=== PATIENT | male | born 1965 | race Caucasian/White ===

== ENCOUNTER 2018-06-26 22:20 | Emergency (ER) | payer OTHER ==
--- NOTE | 2018-06-26 22:26 | PDOC ---
History of Present Illness - General Chief Complaint: Eye Problem Stated Complaint: EYE PROBLEM Time Seen by Provider: 06/26/18 22:25 History Source: Patient Exam Limitations: No Limitations - History of Present Illness Initial Comments: 06/26/18 22:47 53 year old male with PMH HTN, DM (Trulicity, Metformin), tinnitus (x1 year) presented to ED for right sided facial drooping x2 days. Pt admitted to dry right eye, blurry vision, numbness to right side of face. Pt denied fever, chills, nausea, vomiting, headache, weakness of extremities, changes to gait, dizziness. Past History - Past Medical History Home Medications: Ambulatory Orders Acyclovir [Zovirax -] 400 mg PO 5XD #50 tablet 06/26/18 Dextran 70/Hypromellose [Artificial Tears] 2 drop OP PRN #1 bottle 06/26/18 Review of Systems - Review of Systems Able to Perform ROS?: Yes Comments:: 06/26/18 22:48 General: denied fever, chills, night sweats, generalized weakness. Eye: admitted to dry eyes, blurry vision. HENT: admitted to tinnitus. denied sore throat, rhinorrhea, ear pain. Heart: denied chest pain, palpitations, syncope, lower extremity swelling, diaphoresis. Respiratory: denied shortness of breath, cough, sputum production, hemoptysis. Abdomen: denied abdominal pain, nausea, vomiting, diarrhea, constipation, blood in stool. : denied dysuria, increased urinary frequency, hematuria, urinary incontinence , flank pain. Back: denied back pain. Musculoskeletal: denied joint pain, muscle pain, joint swelling. Neurological: admitted to right sided facial drooping, numbness. denied headache , dizziness, weakness. Skin: denied rash, laceration, abrasion. *Physical Exam - Physical Exam Comments: 06/26/18 23:00 Constitutional: Well-nourished, Well-developed, appearing stated age. Eye: 20/20 vision bilaterally. HEENT: head is normocephalic, atraumatic. EOMI. PERRLA. no vesicles to bilateral TM, no erythema or bulging to bilateral TM. Neck: supple. Full ROM. Heart: regular rhythm. no murmurs, rubs or gallops. Lungs: clear to auscultation bilaterally. no crackles, rhonchi or wheezing. no stridor. Abdomen: soft, nontender. normal bowel sounds. no rebound, guarding, masses. Extremities: Peripheral pulses intact. No lower extremity edema. Neurological: Alert. Oriented x3. CN2-12 intact. Drooping of right nasolabial fold, decreased smile on right, decreased forehead wrinkling on right. 5/5 strength all extremities. Full and equal sensation all extremities and bilateral face. Finger to nose normal. Gait normal. Psych: awake, alert, oriented x3. Follows commands. Answers questions appropriately. ED Treatment Course - LABORATORY CBC & Chemistry Diagram: 06/26/18 22:45 06/26/18 22:45 Medical Decision Making - Medical Decision Making 06/26/18 23:02 53 year old male with above PMH presented to ED for right sided facial drooping , dry right eye x2 days. Symptoms consistent with bells palsy. Pt is neurologically intact. Initial Vital Signs Temp Pulse Resp BP Pulse Ox 98.5 F 68 17 158/95 100 06/26/18 22:23 06/26/18 22:23 06/26/18 22:23 06/26/18 22:23 06/26/18 22:23 Afebrile. No tachycardia. No tachypnea. Mild hypertension. No hypoxia on room air. Labs ordered: CBC, CMP, lyme. Medications ordered: none Imaging ordered: none I spoke with neurology poultry boner, Dr. Campbell, who advised discharge with follow up in his office with prescription for artifical tears and acyclovir. Pt's last hemoglobin A1C was 9. Steroids deferred at this time. CBC WBC 7.0 K/mm3 (4.0-10.0) 06/26/18 22:45 RBC 5.46 M/mm3 (4.00-5.60) 06/26/18 22:45 Hgb 17.1 GM/dL (11.7-16.9) H 06/26/18 22:45 Hct 48.8 % (35.4-49) 06/26/18 22:45 MCV 89.3 fl (80-96) 06/26/18 22:45 MCH 31.4 pg (25.7-33.7) 06/26/18 22:45 MCHC 35.1 g/dl (32.0-35.9) 06/26/18 22:45 RDW 12.9 % (11.9-15.9) 06/26/18 22:45 Plt Count 188 K/MM3 (134-434) 06/26/18 22:45 MPV 10.4 fl (7.5-11.1) 06/26/18 22:45 No leukocytosis. No anemia. 06/26/18 23:54 CMP Sodium 138 mmol/L (136-145) 06/26/18 22:45 Potassium 4.2 mmol/L (3.5-5.1) 06/26/18 22:45 Chloride 98 mmol/L (98-107) 06/26/18 22:45 Carbon Dioxide 32 mmol/L (21-32) 06/26/18 22:45 Anion Gap 8 MMOL/L (8-16) 06/26/18 22:45 BUN 19 mg/dL (7-18) H 06/26/18 22:45 Creatinine 1.2 mg/dL (0.55-1.3) 06/26/18 22:45 Creat Clearance w eGFR > 60 (>60) 06/26/18 22:45 Random Glucose 310 mg/dL (74-106) H* 06/26/18 22:45 Calcium 9.5 mg/dL (8.5-10.1) 06/26/18 22:45 Total Bilirubin 0.5 mg/dL (0.2-1) 06/26/18 22:45 AST 32 U/L (15-37) 06/26/18 22:45 ALT 53 U/L (13-61) 06/26/18 22:45 Alkaline Phosphatase 96 U/L (45-117) 06/26/18 22:45 Total Protein 8.0 g/dl (6.4-8.2) 06/26/18 22:45 Albumin 4.3 g/dl (3.4-5.0) 06/26/18 22:45 No electrolyte abnormalities. No XOCHITL. Cr 1.2, no prior to compare. Hyperglycemic. No transaminitis. Pt informed of hyperglycemia and need for follow up with PCP for better glycemic control. Pt informed of importance of quick neurology follow up. Pt given referrals. Pt given the option of Valcyclovir vs Acyclovir, stated he preferred the cheaper option. Pt's eye was covered with tape and gauze to keep right eye shut and prevent dryness. Pt agreed with the plan for care and was discharged with prescription for acyclovir and artifical tears. Steroids were deferred at this time secondary to his poor glycemic control. *DC/Admit/Observation/Transfer Diagnosis at time of Disposition: Varner's palsy - Prescriptions Prescriptions: Acyclovir [Zovirax -] 400 mg PO 5XD #50 tablet Dextran 70/Hypromellose [Artificial Tears] 2 drop OP PRN #1 bottle - Referrals Referrals: Gutierrez Campbell MD [Staff Physician] - Tomas Gaines DO [Staff Physician] - Guille Edouard MD [Staff Physician] - - Patient Instructions Printed Discharge Instructions: DI for Varner's Palsy Additional Instructions: You were seen today for facial drooping. You likely have bells palsy, a viral infection of a cranial nerve controlling your facial muscles. I have sent a prescription for an antiviral to your pharmacy, take it 5 times a day. I have sent a prescription for artificial tears to your pharmacy, use 1-2 drops as needed for dryness. Cover your eye with a cotton pad and tape so that the lid will stay closed and your eye will not become more dry. RIP MACHINE OPERATOR YOUR PRESCRIPTIONS TONIGHT. I spoke with Dr. Campbell, a neurologist, who stated you can call his office tomorrow morning and ask for an appointment with any doctors in his office, he stated to tell the office that you were seen in the Emergency Department and he has approved you to be seen soon. Return to the Emergency Department for numbness/weakness of the arms or legs, fever, vomiting , changes to your gait/walking, rash, increasing pain or any other new, worsening or concerning symptoms. Your blood sugar was high (300s), follow up with your primary care doctor about this. Follow up with your primary care doctor in 1-2 days, call their office tomorrow morning and tell them you were seen in the Emergency Department and told to follow up quickly. Fuiste visto hoy por la cada facial. Es probable que tenga parlisis de campanas, stefania infeccin viral de un nervio craneal que controla suraj msculos faciales. He enviado stefania receta para un antiviral a barton farmacia, tmela 5 veces al da. He enviado stefania receta para lgrimas artificiales a barton farmacia, use 1-2 gotas segn sea necesario para la sequedad. Cubra barton dasia con stefania almohadilla de algodn y stefania cinta para que la tapa permanezca cerrada y barton dasia no se seque ms. RECOGE SURAJ PRESCRIPCIONES ESTA NOCHE. Habl con el Dr. Campbell, un neurlogo, quien me dijo que puede llamar a barton oficina maana por la maana y pedir stefania matt con cualquier mdico en barton oficina. Me dijo que le informara a la oficina que lo atendieron en el Departamento de Emergencias y que lo aprob. para ser visto pronto Regrese al Departamento de Emergencias para entumecimiento / debilidad de los brazos o piernas, fiebre, vmitos, cambios en la / and, erupcin cutnea, dolor creciente o cualquier otro sntoma nuevo, que empeore o relacionado con los sntomas. Barton nivel de azcar en la amber fue alto (300 s), consulte a barton mdico de atencin primaria sobre esto. Slava un seguimiento con barton mdico de atencin primaria en 1 o 2 lozano, llame a barton consultorio maana por la maana y jorgeales que lo atendieron en el Departamento de Emergencias y que le indicaron que realice un seguimiento rpido. - Post Discharge Activity Forms/Work/School Notes: Back to Work
[2018-06-26 22:29] VITALS: BP 158/95; PULSE 68; TEMP 98.5; BMI 27.1
[2018-06-26 23:12] LABS: HEMATOCRIT 48.8 % (35.4-49); HEMOGLOBIN 17.1 GM/dL (11.7-16.9); MCH 31.4 pg (25.7-33.7); MCHC 35.1 g/dl (32.0-35.9); MEAN CELL VOLUME 89.3 fl (80-96); MEAN PLT VOLUME 10.4 fl (7.5-11.1); PLATELET COUNT 188 K/MM3 (134-434); RBC 5.46 M/mm3 (4.00-5.60); RDW 12.9 % (11.9-15.9)
--- NOTE | 2018-06-26 23:24 | PDOC ---
Attending Attestation - Resident Resident Name: Alisha Craig - ED Attending Attestation I have performed the following: I have examined & evaluated the patient, The case was reviewed & discussed with the resident, I agree w/resident's findings & plan - HPI HPI: 06/27/18 00:04 The patient is a 53 year old male, with a significant past medical history of HTN and DM, who presents to the emergency department with, 2 days of right sided facial weakness with associated right eye blurred vision and dryness. He denies any changes in strength or sensation to the face. He denies any change in gait. He denies any recent fevers, chills, headache or dizziness. He denies any recent nausea, vomit, diarrhea or constipation. He denies any recent chest pain or shortness of breath. He denies any recent dysuria, frequency, urgency or hematuria. Past surgical history: None reported. Social History: Nonsmoker. Denies EtOH use and recreational drug use. - Physicial Exam PE: 06/27/18 00:04 NAD, well appearing, EOMI, PERRL, MMM, nl conjunctiva, anicteric; neck supple. lungs clear, RRR, abdomen soft nontender. CURIEL x4. No peripheral edema. normal color for ethnicity, WWP. Alert, oriented appropriately. +right peripheral CN VII - palsy, complete with facial droop, lack of folds on right forehead/nasolabial folds. Strength prox and distally 5/5 throughout. Sensation grossly intact to light touch. CURIEL x4. No cerebellar signs, no dysmetria, bilateral finger to nose and heel to loredo equal and symmetric. Speech clear. gait stable. 06/27/18 00:07 - Medical Decision Making 06/26/18 23:22 53 year old male with PMH HTN, DM (Trulicity, Metformin) presented to ED for right sided facial drooping x2 days. no headache/dizziness, paresthesias. vitals wnl. basic labs and lytes normal, glucose elevated ~300, needs proper diabetic control as outpatient, on trulicity and metformin only, instructed to do so. is diabetic, no prednisone. clinically with peripheral CN VII palsy, complete, suggesting Varner's palsy less likely central etiology rx antivirals only neuro call to Dr. Campbell, agree with plan, call tomorrow for close neuro followup also rx artificial tears to keep eye moist, eye cover at nighttime. minimize risk for corneal abrasions/dry eye return precautions DC in stable condition 06/27/18 00:07
[2018-06-26 23:50] LABS: ALBUMIN 4.3 g/dl (3.4-5.0); ALK PHOS 96 U/L (45-117); ANION GAP 8 MMOL/L (8-16); BILIRUBIN,TOTAL 0.5 mg/dL (0.2-1); BLOOD UREA NITROGEN 19 mg/dL (7-18); CALCIUM 9.5 mg/dL (8.5-10.1); CHLORIDE 98 mmol/L (98-107); CO2 32 mmol/L (21-32); CREATININE 1.2 mg/dL (0.55-1.3); POTASSIUM 4.2 mmol/L (3.5-5.1); SGOT/AST 32 U/L (15-37); SGPT/ALT 53 U/L (13-61); SODIUM 138 mmol/L (136-145)
[2018-06-26 23:51] LABS: GLUCOSE,RANDOM 310 mg/dL (74-106)
== END 2018-06-27 01:17 | disposition home or self-care (01) ==
LOC: JER 22:20
DX: G51.0 Bell's palsy (principal)
CPT/HCPCS: 36415; 80053; 85027; 86618; 99282-25

== ENCOUNTER 2019-02-27 20:27 | Emergency (ER) | payer OTHER | END 2019-02-27 22:19 | disposition home or self-care (01) | LOC: JERFT 20:27 ==

== ENCOUNTER 2020-12-29 09:38 | Emergency (ER) | payer OTHER ==
[2020-12-29 09:45] VITALS: BP 124/81; PULSE 65; TEMP 98.2; BMI 27.6
== END 2020-12-29 11:28 | disposition home or self-care (01) ==
LOC: JERFT 09:38 → JER 09:38 → JERFT 11:28
DX: H00.013 Hordeolum externum right eye, unspecified eyelid (principal)
CPT/HCPCS: 99283-25

== ENCOUNTER 2022-06-06 12:05 | Emergency (ER) | payer OTHER ==
[2022-06-06 12:15] VITALS: BP 126/87; PULSE 79; RESP 18; TEMP 99.1; BMI 28.3
[2022-06-06] MEDS ORDERED: LIDOCAINE 5% TOPICAL PATCH TP ONE (12:50)
[2022-06-06] MEDS ORDERED: ACETAMINOPHEN 500 MG TABLET (FP) PO ONE (12:50)
[2022-06-06] MEDS ORDERED: ACETAMINOPHEN 500 MG TABLET (FP) ONE (12:55)
[2022-06-06] MEDS ORDERED: LIDOCAINE 5% TOPICAL PATCH ONE (12:55)
[2022-06-06 13:24] LABS: EPI CELLS 2 /uL (0-25.1); HYALINE CASTS 0 /uL (0-3.1); URINE APPEARANCE CLEAR; URINE BACTERIA 0 /uL (0-1359); URINE BILIRUBIN NEGATIVE (NEGATIVE); URINE COLOR YELLOW; URINE GLUCOSE (UA) 3+ (NEGATIVE); URINE KETONE 1+ (NEGATIVE); URINE LEUK ESTERASE NEGATIVE (NEGATIVE); URINE NITRITE NEGATIVE (NEGATIVE); URINE PROTEIN 1+ (NEGATIVE); URINE RBC 12 /uL (0-23.9); URINE UROBILINOGEN 0.2 mg/dL (0.2-1.0); URINE WBC 3 /uL (0-25.8)
[2022-06-06] MEDS ORDERED: SODIUM CHLORIDE 0.9% 500 ML INFUS.BAG IV ONE (13:35)
[2022-06-06 14:00] LABS: BASO % 0.3 % (0-2.0); EOS % 0.1 % (0-4.5); HEMATOCRIT 48.8 % (35.4-49); HEMOGLOBIN 16.6 GM/dL (11.7-16.9); LYMPH % 10.6 % (8-40); MCH 30.7 pg (25.7-33.7); MEAN CELL VOLUME 90.2 fl (80-96); MONO % 10.7 % (3.8-10.2); NEUT % 78.3 % (42.8-82.8); PLATELET COUNT 145 10^3/uL (134-434); RBC 5.41 M/mm3 (4.00-5.60); RDW 13.3 % (11.9-15.9); WHITE BLOOD COUNT 10.6 K/mm3 (4.0-10.0)
[2022-06-06 14:17] LABS: CALCIUM 9.3 mg/dL (8.5-10.1)
[2022-06-06 14:18] LABS: ALBUMIN 3.8 g/dl (3.4-5.0); BLOOD UREA NITROGEN 26.9 mg/dL (7-18)
[2022-06-06 14:21] LABS: CREATININE 1.4 mg/dL (0.55-1.3)
[2022-06-06 14:22] LABS: BILIRUBIN,TOTAL 0.9 mg/dL (0.2-1); TOT PROT 8.1 g/dl (6.4-8.2)
[2022-06-06] MEDS ORDERED: LIDOCAINE PATCH REMOVAL MC SCH (22:00)
== END 2022-06-06 16:43 | disposition home or self-care (01) ==
LOC: JER 12:05
DX: J18.9 Pneumonia, unspecified organism (principal)
CPT/HCPCS: 0241U-QW; 36415; 74176-TC; 80053; 81003; 85025; 99285-25

== ENCOUNTER 2023-05-23 04:38 | Emergency (ER) | payer OTHER ==
[2023-05-23 04:49] VITALS: BMI 27.4
[2023-05-23] MEDS ORDERED: ATENOLOL 25 MG TABLET (FP) PO ONE (05:25)
[2023-05-23] MEDS ORDERED: ATENOLOL 25 MG TABLET (FP) ONE (06:06)
[2023-05-23] MEDS ORDERED: ACETAMINOPHEN 1000 MG/100 ML BAG IVPB ONE (06:25)
[2023-05-23] MEDS ORDERED: ACETAMINOPHEN INJECTION 100 ML IVPB ONE (06:27)
[2023-05-23 06:34] LABS: BASO % 0.8 % (0-2.0); EOS % 0.4 % (0-4.5); HEMATOCRIT 55.6 % (35.4-49); LYMPH % 30.7 % (8-40); MCH 29.5 pg (25.7-33.7); MCHC 32.4 g/dl (32.0-35.9); MEAN PLT VOLUME 10.2 fl (7.5-11.1); MONO % 8.6 % (3.8-10.2); NEUT % 59.5 % (42.8-82.8); PLATELET COUNT 221 10^3/uL (134-434); RBC 6.11 M/mm3 (4.00-5.60); RDW 13.6 % (11.9-15.9); WHITE BLOOD COUNT 9.9 K/mm3 (4.0-10.0)
[2023-05-23 06:50] LABS: INR 1.09 (0.83-1.09); PROTHROMBIN TIME (PATIENT) 12.6 SEC (9.7-13.0)
[2023-05-23 06:52] LABS: ACTIVATED PTT 34.7 SECONDS (25.2-36.5)
[2023-05-23 07:11] LABS: POTASSIUM 4.4 mmol/L (3.5-5.1)
[2023-05-23 07:13] LABS: CALCIUM 9.7 mg/dL (8.5-10.1)
[2023-05-23 07:14] LABS: ALBUMIN 4.5 g/dl (3.4-5.0); BLOOD UREA NITROGEN 16.6 mg/dL (7-18)
[2023-05-23 07:17] LABS: CREATININE 1.1 mg/dL (0.55-1.3)
[2023-05-23 07:18] LABS: BILIRUBIN,TOTAL 0.9 mg/dL (0.2-1); TOT PROT 8.6 g/dl (6.4-8.2)
[2023-05-23] MEDS ORDERED: LISINOPRIL 20 MG TABLET PO ONE (07:42)
[2023-05-23 08:09] LABS: PH,URINE 5.5 (5.0-8.0); URINE APPEARANCE CLEAR; URINE BILIRUBIN NEGATIVE (NEGATIVE); URINE COLOR YELLOW; URINE GLUCOSE (UA) 3+ (NEGATIVE); URINE KETONE 1+ (NEGATIVE); URINE LEUK ESTERASE NEGATIVE (NEGATIVE); URINE NITRITE NEGATIVE (NEGATIVE); URINE PROTEIN NEGATIVE (NEGATIVE); URINE UROBILINOGEN 0.2 mg/dL (0.2-1.0)
[2023-05-23] MEDS ORDERED: LISINOPRIL 20 MG TABLET ONE (09:27)
[2023-05-23 09:37] VITALS: BP 137/81; PULSE 57; RESP 16; TEMP 97.9
== END 2023-05-23 10:32 | disposition home or self-care (01) ==
LOC: JER 04:38 → UNDOADMOB 06:13 → JERBED 06:13 → JER 10:32
PROC: 3E033NZ Introduction of Analgesics, Hypnotics, Sedatives into Peripheral Vein, Percutaneous Approach (ICD-10-PCS; principal; 2023-05-23)
DX: I10 Essential (primary) hypertension (principal); R51.9 Headache, unspecified; R00.1 Bradycardia, unspecified; M79.602 Pain in left arm
CPT/HCPCS: 36415; 70450-TC; 71046-TC-FY; 80053; 81003; 84484; 85025; 85610; 85730; 87086; 93005; 93010; 99285-25